=== PATIENT | male | born 1995 | race American Indian/Alaskan Native ===

== ENCOUNTER 2020-11-04 05:57 | Emergency (ER) | payer MEDICAID ==
[2020-11-04 07:41] VITALS: BP 140/83
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
== END 2020-11-04 11:30 | disposition home or self-care (01) ==
LOC: ED 05:57
DX: S41.032A Puncture wound without foreign body of left shoulder, initial encounter (principal); R52 Pain, unspecified; Z79.899 Other long term (current) drug therapy; Z98.890 Other specified postprocedural states; Z51.89 Encounter for other specified aftercare; W34.00XA Accidental discharge from unspecified firearms or gun, initial encounter; Y93.89 Activity, other specified; Y92.89 Other specified places as the place of occurrence of the external cause; Y99.8 Other external cause status
CPT/HCPCS: 99282